=== PATIENT | male | born 1955 | race African-American/Black ===

== ENCOUNTER 2024-06-03 15:22 | Emergency (ER) | payer OTHER ==
[~2024-06-03] VITALS: Ht 177.8 cm; Wt 87.0 kg
[2024-06-03 15:25] VITALS: O2SAT 100
[2024-06-03] MEDS: INSULIN REGULAR (HUMULIN R) 1000UNITS/10ML VIAL IV NR (16:30)
[2024-06-03] MEDS: ACETAMINOPHEN 325MG TABLET PO STA (16:40)
[2024-06-03] MEDS: SODIUM CHLORIDE 0.9% 1000ML BAG (SEPSIS BOLUS) IV ONE (16:41)
[2024-06-03] MEDS: CEFTRIAXONE 1GM/50ML 50 ML IV ONE (16:41)
[2024-06-03 16:46] LABS: DIFFERENTIAL COMMENT 1; HEMATOCRIT. 40.4 % (42.0-52.0); HEMOGLOBIN. 13.5 g/dL (14.0-18.0); MEAN CORPUSCULAR HEMOGLOBIN 31.4 pg (28.0-32.0); MEAN CORPUSCULAR HGB CONC 33.3 g/dL (31.0-37.0); MEAN CORPUSCULAR VOLUME 94.3 fL (80.0-94.0); MEAN PLATELET VOLUME 10.9 fl (7.4-10.4); PLATELET 159 x1000/uL (130-400); RED BLOOD CELL COUNT 4.29 mill/uL (4.7-6.1); RED CELL DISTRIBUTION WIDTH 12.9 % (11.6-14.6); WHITE BLOOD COUNT 13.8 x1000/uL (4.5-11.0)
[2024-06-03 16:51] LABS: CHLORIDE 101 mEq/L (98-107); POTASSIUM 4.5 mEq/L (3.5-5.1); SODIUM 134 mEq/L (136-145)
[2024-06-03 16:52] LABS: CALCIUM 8.9 mg/dL (8.7-10.4); CARBON DIOXIDE 24 mEq/L (21-32)
[2024-06-03 16:55] LABS: PROTHROMBIN TIME 11.1 sec (9.6-11.0)
[2024-06-03 16:56] LABS: CLARITY URINE CLEAR (CLEAR); COLOR URINE YELLOW (YELLOW); GLUCOSE URINE 3+ (NEGATIVE); KETONES URINE 2+ (NEGATIVE); LEUKOCYTE ESTERASE URINE TRACE (NEGATIVE); NITRITE URINE POSITIVE (NEGATIVE); OCCULT BLOOD URINE TRACE (NEGATIVE); PH URINE 5.5 (4.5-8.0); PROTEIN URINE NEGATIVE (NEGATIVE); SPECIFIC GRAVITY URINE 1.025 (1.005-1.030); UROBILINOGEN URINE 0.2 E.U./dL (0.2-1.0)
[2024-06-03 16:57] LABS: CREATININE 1.4 mg/dL (0.6-1.3); UREA NITROGEN BLOOD 19 mg/dL (9-23)
[2024-06-03 16:59] LABS: ALANINE AMINOTRANSFERASE 19 IU/L (10-49); ALBUMIN 3.8 g/dL (3.2-4.8); ASPARTATE AMINOTRANSFERASE 18 IU/L (<34); BILIRUBIN DIRECT 0.2 mg/dL (<=3.0)
[2024-06-03 17:00] LABS: BETA HYDROXYBUTYRATE 1.1 mMol/L (0.0-0.3); BILIRUBIN TOTAL 0.7 mg/dL (0.1-1.0); PROTEIN TOTAL 6.8 g/dL (6.0-8.3)
[2024-06-03 17:02] LABS: ETHANOL BLOOD < 10 mg/dL (<10)
[2024-06-03 17:03] LABS: GLUCOSE 422 mg/dL (70-105); PLATELET ESTIMATE NORMAL
[2024-06-03 17:09] LABS: *AMPHETAMINES SCREEN URINE NEGATIVE (NEGATIVE); *BARBITURATES SCREEN URINE NEGATIVE (NEGATIVE); *BENZODIAZEPINES SCREEN URINE NEGATIVE (NEGATIVE); *COCAINE SCREEN URINE NEGATIVE (NEGATIVE); CANNABINOID URINE SCREEN NEGATIVE (NEGATIVE); METHADONE URINE SCREEN NEGATIVE (NEGATIVE); OPIATES URINE SCREEN NEGATIVE (NEGATIVE); PHENCYCLIDINE URINE SCREEN NEGATIVE (NEGATIVE)
[2024-06-03 17:10] LABS: ECSTASY MDMA SCREEN URINE NEGATIVE (NEGATIVE)
[2024-06-03 17:11] LABS: BACTERIA URINE 1+; RBC URINE 0-2 /hpf (0-2); SQUAMOUS EPITHELIAL CELL URINE 1+ /lpf (RARE/1+)
[2024-06-03] MEDS: MORPHINE SULFATE 4 MG/ML INJ (FOR IV/IM USE) IV ONE (20:40)
[2024-06-03 23:08] VITALS: BP 146/64; PULSE 95; RESP 16; TEMP 37.16964; O2SAT 100
== END 2024-06-03 23:09 | disposition short-term general hospital (02) ==
LOC: ER 15:22
DX: A41.9 Sepsis, unspecified organism (principal); R65.20 Severe sepsis without septic shock; I10 Essential (primary) hypertension; E11.9 Type 2 diabetes mellitus without complications; Z20.822 Contact with and (suspected) exposure to COVID-19
CPT/HCPCS: 80076; 80305; 80048; 81003; 82010; 80320; 83605; 83690; 85025; 85610; 87040; 87086; 87186; 87804 ×2; 87077; 36415; 84145; 71045; 74176; 93005; 96365; 96375; 99291; 87426; J0696; J1815; J2270; J7030; G0480